=== PATIENT | male | born 1965 | race Caucasian/White ===

== ENCOUNTER 2020-10-14 13:25 | Emergency (ER) | payer BC ==
--- NOTE | 2020-10-14 14:06 | EDM.PDOC ---
ED HPI GENERAL MEDICAL PROBLEM - General Chief Complaint: General Stated Complaint: FELL ON ROCK Time Seen by Provider: 10/14/20 13:55 Source of Information: Reports: Patient - History of Present Illness INITIAL COMMENTS - FREE TEXT/NARRATIVE: Barak is a 55 year old male whom present [facility] with posterior lateral chest wall/back pain after falling on a rock while playing basketball with kids. Injury occurred about 1-2 hours ago. Barak presents with female signficant other, whom assists with history. Barak did not take any pain medications before presenting to ER. Barak denies allergies to medications and prefers Tylenol for treatment of pain. Barak denies history of back or rib injury or fracture in the past. Left Middle Back Pain Score (Numeric/FACES): 8 - Related Data Allergies Allergy/AdvReac Type Severity Reaction Status Date / Time No Known Allergies Allergy Verified 10/14/20 13:48 Home Meds: Home Meds Acetaminophen/oxyCODONE [Percocet 325-5 MG] 1 - 2 each PO Q6H PRN 5 Days #10 tab 10/14/20 [Rx] methocarbamoL [Robaxin] 500 - 1,000 mg PO TID PRN 7 Days #30 tab 10/14/20 [Rx] Social & Family History - Tobacco Use Tobacco Use Status *Q: Current Every Day Tobacco User Years of Tobacco use: 30 Packs/Tins Daily: 0.8 - Caffeine Use Caffeine Use: Reports: None - Recreational Drug Use Recreational Drug Use: No ED ROS GENERAL - Review of Systems Review Of Systems: Comprehensive ROS is negative, except as noted in HPI. ED EXAM, GENERAL - Physical Exam Exam: See Below General Appearance: Alert, WD/WN, Moderate Distress (with breathing laughing and movemetn in left lateral posterior rib/back) Eye Exam: Bilateral Eye: Normal Inspection Ears: Hearing Grossly Normal Nose: Normal Inspection Throat/Mouth: Normal Inspection, Normal Voice, No Airway Compromise Head: Atraumatic, Normocephalic Neck: Normal Inspection, Supple, Full Range of Motion Respiratory/Chest: Splinting (left posterior lateral rib pain with crepitus over 9-12 lateral chest with on confirmed palpation fracture. Slight bruising noted at sight of point tenderness. ) Cardiovascular: Normal Peripheral Pulses, Regular Rate, Rhythm GI/Abdominal: Normal Bowel Sounds, Soft, Non-Tender Back Exam: Paraspinal Tenderness (left paravertebral area lower third of thoracic spine with possible facet fracture) Extremities: Normal Inspection, Other (abrasions left elbow/forearm) Neurological: Alert, Oriented Psychiatric: Normal Affect, Normal Mood Skin Exam: Warm, Dry, Intact ED GENERAL MEDICAL PROCEDURES - Additional/Other Procedure(s) Other (Free Text) Procedure(s): POINT OF CARE ULTRASOUND - PULMONARY EXAM Indication: Abnormal Breath Sounds/Trauma Findings: Right Lung field: Positive Slide Side, A Line and B Lines observed over 2 anterior superior sites Left Upper Lung [place]: Positive Slide sign, A Line and B Lines observed over 3 anterior and 3 lateral posterior sites. A bedside ultrasound was performed, and interpreted by myself. Image obtained and reviewed with the patient at bedside and saved, when possible. Patient tolerated the procedure well. Course - Re-Assessments/Exams Free Text/Narrative Re-Assessment/Exam: 10/14/20 14:23 Discussed risk vs benefit of additional plain films (offered) CXR or Lateral rib films which are not as accurate in diagnosing rib fractures or pneumothorax. Bedside Ultrasound is currently negative and fairly accurate and specific for pneumothorax. Discussed/offered CT Chest w/ or w/o IV contrast for further evaluation of thoracic spine pedicle/facet or additional rib fractures (displaced or non displaced). Departure - Departure Time of Disposition: 14:35 Disposition: Home, Self-Care 01 Clinical Impression: Chest wall injury, Rib fractures - Discharge Information Prescriptions: Acetaminophen/oxyCODONE [Percocet 325-5 MG] 1 - 2 each PO Q6H PRN 5 Days #10 tab PRN Reason: pain methocarbamoL [Robaxin] 500 - 1,000 mg PO TID PRN 7 Days #30 tab PRN Reason: Muscle Spasm - Painful Instructions: Rib Fracture, Blunt Chest Trauma Referrals: PCP,None [Primary Care Provider] - Additional Instructions: 1. Salonpas 4% Lidocaine patch over site of maximal tenderness (per package insert) instructions for use. 2. Heat 15-20 minutes vs Ice 15-20 minuets for swelling and pain. 3. Tylenol 325-500mg every 4-6 hrs for mild to moderate pain and/or Percocet 5/325mg every 4-6 hrs for moderate to severe pain #10 prescription. caution Maximum Tylenol (acetaminophen) in a 24 hr period of time is 4,000mg. 4. Consider Ibuprofen 600-800mg every 6-8 hrs with food for pain, swelling and inflammation. 5. Robaxin 500mg every 6-8hr as needed fro muscle spasms and pain #30 prescription. 6. Return to ER if increased chest pain, shortness of breath, worsening symptoms or new concerns for further evaluation with recommended CT chest as injury progression may occur over the next 3-5 days. 7. Decreased activity within limitations of pain.
[2020-10-14] MEDS ORDERED: Acetaminophen/oxyCODONE 325-5 MG Tab PO PRN (14:16)
[2020-10-14] MEDS ORDERED: Acetaminophen 325 MG Tab PO ONE (14:17)
== END 2020-10-14 14:46 | disposition home or self-care (01) ==
LOC: JP.ED 13:25
DX: S22.32XA Fracture of one rib, left side, initial encounter for closed fracture (principal); Z72.0 Tobacco use; W18.30XA Fall on same level, unspecified, initial encounter; Y93.67 Activity, basketball
CPT/HCPCS: 99283; A9270